=== PATIENT | male | born 1950 | race African-American/Black ===

== ENCOUNTER 2017-06-09 19:11 | Inpatient (IN) | payer MEDICARE ==
[~2017-06-09] VITALS: Ht 182.9 cm; Wt 91.6 kg
--- NOTE | 2017-06-09 19:40 | NUR ---
TO BED 8 A 66 YO MALE BIBRA W C/O "WEAK/CONFUSED SINCE MORNING." UPON ARRIVAL TO ER, PATIENT IS ALERT RESPONSIVE, ORIENTED X2, WITH PERIODS OF CONFUSION. VSS. NAD NOTED. BREATHING EVEN AND UNLABORED. NONDIAPHORETIC. ONGOING MONITORING. SAFETY AND COMFORT MEASURES RENDERED. AWAITING FOR ER MD KO.
--- NOTE | 2017-06-09 19:40 | NUR ---
started a saline lock on the right hand g20, blood drawn and sent to lab.
--- NOTE | 2017-06-09 19:41 | NUR ---
CXR AT BEDSIDE.
--- NOTE | 2017-06-09 19:50 | NUR ---
PATIENT TO CT.
[2017-06-09 20:22] LABS: BASOPHILS # (AUTO) 0.1 /CMM (0.0-0.2); BASOPHILS % (AUTO) 1.1 % (0.0-2.0); EOSINOPHILS # (AUTO) 0.2 /CMM (0.0-0.7); EOSINOPHILS % (AUTO) 1.4 % (0.0-6.0); HEMATOCRIT 41 % (39-51); HEMOGLOBIN 14.1 g/dL (13.5-17.5); LYMPHOCYTES # (AUTO) 2.4 /CMM (0.8-4.8); LYMPHOCYTES % (AUTO) 20.4 % (20.0-44.0); MEAN CORPUSCULAR HEMOGLOBIN 31 PG (26.0-33.0); MEAN CORPUSCULAR HGB CONC 34 g/dl (31.0-36.0); MEAN CORPUSCULAR VOLUME 90 fL (80-96); MONOCYTES # (AUTO) 1.2 /CMM (0.1-1.30); MONOCYTES % (AUTO) 10.1 % (2.0-12.0); PLATELET COUNT (AUTO) 269 /CMM (150-450); RDW COEFFICIENT OF VARIATION 12.2 (11.5-15.0); RED BLOOD CELL COUNT(AUTO) 4.56 MIL/uL (4.5-6.0); WHITE BLOOD COUNT (AUTO) 11.9 K/uL (4.3-11.0)
[2017-06-09 20:32] LABS: CALCIUM, SERUM 9.1 mg/dL (8.5-10.1); CARBON DIOXIDE 22 mmol/L (21-32); CHLORIDE 102 mmol/L (98-107); CREATININE 1.3 mg/dL (0.6-1.3); GLUCOSE 210 mg/dL (74-106); POTASSIUM 4.1 mmol/L (3.5-5.1); SODIUM SERUM 133 mmol/L (136-145); UREA NITROGEN, BLOOD 25 mg/dL (7-18)
[2017-06-09 20:36] LABS: INR 0.98 (0.87-1.13); PROTHROMBIN TIME 10.2 SECS (9.5-12.7)
[2017-06-09 20:38] LABS: ALANINE AMINOTRANSFERASE 26 U/L (12-78); ALBUMIN 3.5 g/dL (3.4-5.0); ALCOHOL, BLOOD < 3 mg/dL (0-0); ALKALINE PHOSPHATASE 84 U/L (46-116); ASPARTATE AMINOTRANSFERASE 17 U/L (15-37); BILIRUBIN,DIRECT 0.1 mg/dL (0.0-0.2); BILIRUBIN,TOTAL 0.5 mg/dL (0.2-1.0); TOTAL PROTEIN, SERUM 7.2 g/dL (6.4-8.2)
[2017-06-09 20:39] LABS: ACETAMINOPHEN < 2 ug/ml (10-30); SALICYLATE 0.8 mg/dL (2.8-20.0)
[2017-06-09 20:40] LABS: TROPONIN I < 0.017 ng/mL (0.00-0.056)
[2017-06-09] MEDS ORDERED: ASPI81TA2 PO (21:11)
[2017-06-09] MEDS ORDERED: MEMA10TA PO (21:11)
[2017-06-09] MEDS ORDERED: LISI2.5T2 PO (21:11)
[2017-06-09] MEDS ORDERED: RISP0.5T2 PO (21:11)
[2017-06-09] MEDS ORDERED: METO-302 PO (21:11)
[2017-06-09] MEDS ORDERED: INSU3INS6 SUBCUT (21:11)
[2017-06-09] MEDS ORDERED: HUMALOG (21:11)
[2017-06-09] MEDS ORDERED: DIVA500T2 PO (21:11)
[2017-06-09] MEDS ORDERED: ATOR20TA PO (21:11)
--- NOTE | 2017-06-09 21:47 | NUR ---
CALLED FOR TELE BED
--- NOTE | 2017-06-09 21:55 | NUR ---
Lidocaine uroject administered prior to straight catheter per Dr Schreiber's verbal order.
--- NOTE | 2017-06-09 21:57 | NUR ---
PERFORMED STRAIGHT CATHETER ON PATIENT ASEPTICALLY PER DR WILLS VERBAL ORDER, DRAINED ABOUT 80CC OF ORANGE COLORED URINE. COLLECTED AND SENT TO LAB.
--- NOTE | 2017-06-09 22:14 | NUR ---
Patient was from [facility], the medical administrator's contact number is [phone]. Call if there is any question.
[2017-06-09 22:20] LABS: APPEARANCE,URINE SL CLOUDY (CLEAR); BILIRUBIN,URINE NEGATIVE (NEGATIVE); BLOOD, URINE NEGATIVE Ery/uL (NEGATIVE); COLOR,URINE YELLOW (YELLOW); KETONES,URINE NEGATIVE (NEGATIVE); LEUKOCYTE ESTERASE ,URINE TRACE (NEGATIVE); NITRITE, URINE NEGATIVE (NEGATIVE); PROTEIN,URINE TRACE mg/dl (NEGATIVE); UGLUCOSE 2+ mg/dL (NEGATIVE)
[2017-06-09 22:24] LABS: RBC,URINE 0-2 /HPF (0-2)
[2017-06-09 22:25] LABS: BACTERIA,URINE Few /HPF (None Seen); SQUAMOUS EPITHELIAL CELL,UR Rare /HPF (None Seen); WBC,URINE 25-30 /HPF (0-3)
--- NOTE | 2017-06-09 22:43 | NUR ---
TELE 320-2
--- NOTE | 2017-06-09 23:13 | NUR ---
REPORT GIVENT TO MIKE MARTIN FOR TELE ADMISSION AND MARLEEN. PATIENT IS GOING TO ROOM 328-2.
[2017-06-10] VITALS: BP 128/75
--- NOTE | 2017-06-10 00:30 | NUR ---
PRODUCTION TESTER NOTE: RECEIVED PATIENT FROM ER, NO ACUTE DISTRESS NOTED. BREATHING EVEN AND UNLABORED, NO SOB NOTED. TELE READING SR 73. IV TO RIGHT HAND #20G IN PLACE. ORIENTED PATIENT TO ROOM AND USE OF CALL LIGHT. BED LOCKED AND IN LOWEST POSITION, CALL LIGHT IN REACH. WILL CONTINUE TO MONITOR.
--- NOTE | 2017-06-10 01:15 | NUR ---
MANUAL TRAINING TEACHER NOTE: PATIENT LACTIC ACID 2.4. PATIENT HAD BLOOD CULTURES DONE IN ER, AND ROCEPHIN 1 GRAM GIVEN IN ER. PATIENT STARTED ON IV FLUIDS OF D5 1/2NS AT 75 ML/HR. INFORMED EATING DISORDER PSYCHOLOGIST MD, DR. SHANKAR, SHE WILL LOOK INTO PATIENT CHART. WILL CONTINUE TO MONITOR.
[2017-06-10 04:00] VITALS: BP 104/65
--- NOTE | 2017-06-10 05:30 | NUR ---
DIVERSIFIED CROPS SUPERVISOR NOTE: RAINEY CATHETER #16FR INSERTED PER MD ORDER, WITH MINIMAL BLEEDING AND CLEAR YELLOW URINE OUTPUT. PATIENT TOLERATED TREATMENT WITHOUT COMPLAINS. WILL CONTINUE TO MONITOR.
--- NOTE | 2017-06-10 06:10 | NUR ---
PUSH BENCH OPERATOR HELPER NOTE: PATIENT RESTING IN BED, NO ACUTE DISTRESS NOTED. BREATHING EVEN AND UNLABORED, NO SOB NOTED. TELE READING SR 70. IV TO RIGHT HAND #20G IN PLACE, INFUSING D5 1/2 NS AT 75 ML/HR. RAINEY CATHETER IN PLACE, DRAINING CLEAR YELLOW URINE WITH MIN BLEEDING. BED LOCKED AND IN LOWEST POSITION, CALL LIGHT IN REACH. WILL ENDORSE TO DAY NURSE TO CONTINUE WITH PLAN OF CARE.
[2017-06-10 06:40] LABS: BASOPHILS % (AUTO) 0.2 % (0.0-2.0); EOSINOPHILS # (AUTO) 0.1 /CMM (0.0-0.7); EOSINOPHILS % (AUTO) 1.8 % (0.0-6.0); HEMATOCRIT 38 % (39-51); HEMOGLOBIN 12.9 g/dL (13.5-17.5); LYMPHOCYTES # (AUTO) 1.9 /CMM (0.8-4.8); LYMPHOCYTES % (AUTO) 24.4 % (20.0-44.0); MEAN CORPUSCULAR HEMOGLOBIN 31 PG (26.0-33.0); MEAN CORPUSCULAR HGB CONC 34 g/dl (31.0-36.0); MEAN CORPUSCULAR VOLUME 92 fL (80-96); MONOCYTES # (AUTO) 0.7 /CMM (0.1-1.30); MONOCYTES % (AUTO) 8.8 % (2.0-12.0); NEUTROPHILS % (AUTO) 64.8 % (43.0-81.0); PLATELET COUNT (AUTO) 221 /CMM (150-450); RDW COEFFICIENT OF VARIATION 13.1 (11.5-15.0); RED BLOOD CELL COUNT(AUTO) 4.18 MIL/uL (4.5-6.0); WHITE BLOOD COUNT (AUTO) 7.7 K/uL (4.3-11.0)
[2017-06-10 06:42] LABS: ALBUMIN 3.2 g/dL (3.4-5.0); BILIRUBIN,TOTAL 0.4 mg/dL (0.2-1.0); CREATININE 1.3 mg/dL (0.6-1.3); PHOSPHORUS 3.1 mg/dL (2.5-4.9); POTASSIUM 4.8 mmol/L (3.5-5.1); PROTHROMBIN TIME 10.7 SECS (9.5-12.7); TOTAL PROTEIN, SERUM 6.6 g/dL (6.4-8.2)
[2017-06-10 06:49] LABS: THYROID STIMULATING HORMONE 2.026 uIU/mL (0.358-3.74)
--- NOTE | 2017-06-10 07:30 | NUR ---
pediatrician/medical doctor Initial Notes: Patient resting in bed. Patient alert oriented x1 with periods of confusion. Non-labored breathing noted. Patient on room air. Patient on Telemetry monitoring with sinus rhythm noted. Patient denies pain. IV site patent and intact. Bed in lowest locked position. Call light within reach. Patient educated on the usage of call light. WIll continue to monitor.
[2017-06-10 08:00] VITALS: BP 123/79
[2017-06-10] MEDS ORDERED: BLOO-668 IN (08:24)
[2017-06-10] MEDS ORDERED: ATOR10TA PO (08:24)
[2017-06-10] MEDS ORDERED: RISP0.2515 PO (08:24)
[2017-06-10] MEDS ORDERED: INSU100V27 SQ (08:24)
--- NOTE | 2017-06-10 10:03 | NUR ---
RN Notes: Dr. Ju Dimas aware of blood in urine. No new orders. Patient's vitals within normal range. Patient denies pain
[2017-06-10 16:00] VITALS: BP 137/81
--- NOTE | 2017-06-10 16:10 | NUR ---
RN Notes: Spoke with Dr. Dimas regarding blood in urine. ordered a CBC stat.
--- NOTE | 2017-06-10 17:12 | NUR ---
RN Notes: Lab notified me of Gram positive cocci in cluster in the patient's blood. Alerted Dr. Dimas. Awaiting orders
--- NOTE | 2017-06-10 19:20 | NUR ---
coating mixer supervisor Closing Notes: Patient resting in bed. Patient alert oriented x1 with periods of confusion. Non-labored breathing noted. Patient on room air. Patient on Telemetry monitoring with sinus rhythm noted. Patient denies pain. IV site patent and intact. Bed in lowest locked position. Call light within reach. Patient educated on the usage of call light. Endorsed to next shift .
[2017-06-10 19:29] LABS: HEMATOCRIT 39 % (39-51); HEMOGLOBIN 13.1 g/dL (13.5-17.5); LYMPHOCYTES % (AUTO) 21.4 % (20.0-44.0); MEAN CORPUSCULAR HEMOGLOBIN 31 PG (26.0-33.0); MEAN CORPUSCULAR HGB CONC 34 g/dl (31.0-36.0); MEAN CORPUSCULAR VOLUME 92 fL (80-96); NEUTROPHILS % (AUTO) 66.5 % (43.0-81.0); PLATELET COUNT (AUTO) 243 /CMM (150-450); RDW COEFFICIENT OF VARIATION 13.2 (11.5-15.0); RED BLOOD CELL COUNT(AUTO) 4.24 MIL/uL (4.5-6.0); WHITE BLOOD COUNT (AUTO) 10.3 K/uL (4.3-11.0)
[2017-06-10 19:30] LABS: BASOPHILS % (AUTO) 0.4 % (0.0-2.0); EOSINOPHILS # (AUTO) 0.3 /CMM (0.0-0.7); EOSINOPHILS % (AUTO) 2.6 % (0.0-6.0); LYMPHOCYTES # (AUTO) 2.2 /CMM (0.8-4.8); MONOCYTES # (AUTO) 0.9 /CMM (0.1-1.30); MONOCYTES % (AUTO) 9.1 % (2.0-12.0); NEUTROPHILS # (AUTO) 6.9 /CMM (1.8-8.9)
--- NOTE | 2017-06-10 19:45 | NUR ---
RN OPENING NOTES RECEIVED REPORT FROM CURTIS RAYMUNDO RN. FOUND Pt AWAKE, RESTING IN BED. Pt IS A/OX1, CONFUSED, BUT IS VERBAL, AND ABLE TO MAKE NEEDS KNOWN. NO S/S OF ACUTE DISTRESS OR SOB NOTED. NO C/O PAIN AT THIS TIME. ON TELE, WITH TELE READING SR 68. RAINEY CATHETER IN PLACE, DRAINING WELL. URINE COLOR IS RED, MD AWARE. ON SOFT DIET, BUT ABLE TO SWALLOW PILLS FINE. IV ACCESS ON RHAND #20G, IVF D5 1/2NS @75ML/HR, INFUSING WELL. SAFETY MEASURES IN PLACE. BED LOW, LOCKED, HOB ELEVATED, SIDE RAILS UP, CALL LIGHT WITHIN REACH. WILL CONTINUE TO MONITOR Pt THROUGHOUT THE NIGHT FOR SAFETY.
[2017-06-10 20:00] VITALS: BP 144/84
--- NOTE | 2017-06-10 20:18 | NUR ---
Patient has a history of Down syndrome and mental retardation , reportedly had difficulty ambulating secondary to weakness in his bilateral lower extremities.He resides at the [facility] B& [phone]. Patient requires assistance with adl's, has adequate DME at the board and care. Current dc plan [facility] to return [facility]& [phone] Addendum: 06/10/17 at 2221 by MEGAN JAIME RN Amended: Links added.
[2017-06-11] VITALS (9 sets, daily range): BP systolic 129–157; BP diastolic 71–88
--- NOTE | 2017-06-11 | NUR ---
RN NOTES HS ACCUCHECK 342. ADMINISTERED 8UN OF INSULIN PER SLIDING SCALE. WILL CONTINUE TO MONITOR Pt's BG LEVELS.
--- NOTE | 2017-06-11 06:24 | NUR ---
pt refused bloodsugar accucheck in the am. asked pt if I could return in 30min to check it and pt still refused. said he wanted to be left alone to sleep.
--- NOTE | 2017-06-11 06:53 | NUR ---
RN CLOSING NOTES NO SIGNIFICANT CHANGES IN Pt's CONDITION. NO S/S OF ACUTE DISTRESS OR SOB NOTED DURING THE NIGHT. ALL NEEDS MET AND ATTENDED TO. SAFETY MEASURES IN PLACE. TELE READING SR 63. WILL ENDORSE TO DAYSHIFT RN FOR Pt's MARLEEN.
--- NOTE | 2017-06-11 07:30 | NUR ---
- patient on bed ,with cabrera cath, draining slightly dark jodi urine., awake , with IV infusing. Asked to go to bathroom & assisted with 2 helps per request., but only a very small amount of formed brownish stool.
--- NOTE | 2017-06-11 11:41 | NUR ---
- Visited by Ju Dimas NP & received orders to remove cabrera cath now w/c was draining clear jodi urine. Removed cabrera cath with no problems , & explained patient to try urine in the next 3-4 hours with more drinking fluids.
--- NOTE | 2017-06-11 13:49 | NUR ---
- Patient was transported to CT scan of abdomen via gurney , fully awake, with IV site patent.
--- NOTE | 2017-06-11 14:02 | NUR ---
- Back from CT Scan via gurney, with IV SITE patent..
--- NOTE | 2017-06-11 16:05 | NUR ---
- After patient was able to move his bowels to soft brownish stools , rectal pain was less reduced , & patient was more cooperative, IV atb infusing.
--- NOTE | 2017-06-11 16:34 | NUR ---
- Patient refused accucheck & was getting agitated. Allowed space but monitored closely.
--- NOTE | 2017-06-11 18:11 | NUR ---
RN closing notes: - patient ate 100% of his dinner & felt much better after moving his bowels 2x, soft stools, rectal pain was not verbalized, but noted to have small amount of urination in the diaper, tho' patient denies bladder spasm .IV infusing well, afebrile, & tolerating meals.
[2017-06-12] VITALS (9 sets, daily range): BP systolic 126–149; BP diastolic 67–83
--- NOTE | 2017-06-12 07:02 | NUR ---
pt alert, oriented x1 ,is a short tempered, pt refused fingerstick last night,insist to ambulate to bathroom for bm.incontinent of bladder, diaper applied. denies any pain, slept well,sinus rhythm on monitor.
[2017-06-12 08:00] LABS: CALCIUM, SERUM 8.9 mg/dL (8.5-10.1); CREATININE 1.3 mg/dL (0.6-1.3); POTASSIUM 4.4 mmol/L (3.5-5.1)
--- NOTE | 2017-06-12 08:10 | NUR ---
RN NOTES RECEIVED PT. PT IS STABLE AND IN BED RESTING. NO S/S OF DISTRESS OR SOB. PT HAS C/O PAIN, WILL ADDRESS. PT APPEARS TO BE IN A PLEASANT MOOD AND COMPLIANT WITH ALL REQUESTS. TELE MONITOR ON PT READING NORMAL SINUS RHYTHM AT 66 BPM. IV ACCESS LOCATED ON LEFT AC AND RIGHT HAND. SAFETY MEASURES IN PLACE, CALL LIGHT WITHIN REACH. WILL CONTINUE TO MONITOR.
--- NOTE | 2017-06-12 19:29 | NUR ---
RN NOTES PT IS IN BED RESTING. A/OX2. NO S/S OF DISTRESS OR SOB. NO C/O PAIN AT THIS TIME. PT HAS COMPLAINED OF N/V ALL DAY. ZOFRAN GIVEN TWICE AND N/V MANAGED. BS REACHED 372 AT 1200, INSULIN COVERAGE GIVEN. SAFETY MEASURES IN PLACE. CALL LIGHT WITHIN REACH. WILL ENDORSE TO BREAKER ENGINEER FOR MARLEEN.
--- NOTE | 2017-06-12 19:30 | NUR ---
RN NOTES PT IS IN BED RESTING. A/OX2. NO S/S OF DISTRESS OR SOB. NO C/O PAIN AT THIS TIME. PT HAS NAUSEA. IV SITE INTACT, WITH FLUIDS RUNNING ORDERED. WILL ADMINISTER ZOFRAN ORDERED. SAFETY MEASURES IN PLACE. CALL LIGHT WITHIN REACH. BEE LOCKED AND IN LOWEST POSITION. .
--- NOTE | 2017-06-12 22:00 | NUR ---
RN NOTES BLOOD SUGAR 210. INSULIN GIVEN PER SLIDING SCALE.
[2017-06-13] VITALS: BP 137/78
[2017-06-13 04:00] VITALS: BP 131/72
[2017-06-13 06:00] VITALS: BP 116/71
[2017-06-13 06:38] LABS: BASOPHILS # (AUTO) 0.1 /CMM (0.0-0.2); BASOPHILS % (AUTO) 0.8 % (0.0-2.0); EOSINOPHILS # (AUTO) 0.4 /CMM (0.0-0.7); EOSINOPHILS % (AUTO) 4.1 % (0.0-6.0); HEMATOCRIT 37 % (39-51); HEMOGLOBIN 12.9 g/dL (13.5-17.5); LYMPHOCYTES % (AUTO) 32.9 % (20.0-44.0); MEAN CORPUSCULAR HEMOGLOBIN 32 PG (26.0-33.0); MEAN CORPUSCULAR HGB CONC 35 g/dl (31.0-36.0); MEAN CORPUSCULAR VOLUME 91 fL (80-96); MONOCYTES # (AUTO) 0.8 /CMM (0.1-1.30); MONOCYTES % (AUTO) 8.5 % (2.0-12.0); NEUTROPHILS # (AUTO) 4.9 /CMM (1.8-8.9); NEUTROPHILS % (AUTO) 53.7 % (43.0-81.0); PLATELET COUNT (AUTO) 243 /CMM (150-450); RDW COEFFICIENT OF VARIATION 13.3 (11.5-15.0); RED BLOOD CELL COUNT(AUTO) 4.07 MIL/uL (4.5-6.0); WHITE BLOOD COUNT (AUTO) 9.1 K/uL (4.3-11.0)
--- NOTE | 2017-06-13 06:46 | NUR ---
DIRECTOR OF ACCREDITATION NOTE TELE SB 58. PATIENT STABLE. ALL NEEDS MET AND ATTENDED TO. BLOOD SUGAR 185. 3 UNITS GIVE. WILL ENDORSE OT DAY SHIFT FOR MARLEEN.
[2017-06-13 07:06] LABS: CALCIUM, SERUM 8.9 mg/dL (8.5-10.1); CREATININE 1.4 mg/dL (0.6-1.3); POTASSIUM 4.2 mmol/L (3.5-5.1)
--- NOTE | 2017-06-13 07:42 | NUR ---
MS/RN OPENING NOTE PATIENT RECEIVED IN BED AWAKE IN STABLE CONDITION. ALERT AND ORIENTED TIMES 2. ABLE TO MAKE DECISIONS AND NEEDS KNOWN. NO SIGNS OF ACUTE DISTRESS. NO COMPLAIN OF PAIN OR DISCOMFORT. ALL NEEDS ATTENDED TO. CALL LIGHT WITHIN REACH. WILL CONTINUE TO MONITOR TO ENSURE SAFETY.
--- NOTE | 2017-06-13 12:37 | NUR ---
MS/RN SEEN BY MARVA PATIENT SEEN BY MARVA SHELL WITH ORDERS OF LEVEMIR 12 UNITS SQ QHS.
[2017-06-13 16:00] VITALS: BP 128/75
--- NOTE | 2017-06-13 18:25 | NUR ---
MS/RN CLOSING NOTE PATIENT IN BED AWAKE IN STABLE CONDITION. ALERT AND ORIENTED TIMES 2-3 WITH EPISODES OF FORGETFULNESS. NO SIGNS OF ACUTE DISTRESS. NO COMPLAIN OF PAIN OR DISCOMFORT. ALL NEEDS ATTENDED TO. CALL LIGHT WITHIN REACH. WILL ENDORSE TO NEXT SHIFT FOR CONTINUITY OF CARE.
--- NOTE | 2017-06-13 19:30 | NUR ---
RN NOTES PT IS IN BED RESTING. A/OX2. NO S/S OF DISTRESS OR SOB. NO C/O PAIN AT THIS TIME. IV SITE INTACT, WITH FLUIDS RUNNING ORDERED. SAFETY MEASURES IN PLACE. CALL LIGHT WITHIN REACH. BED LOCKED AND IN LOWEST POSITION. .
[2017-06-13 20:00] VITALS: BP 123/69
[2017-06-13 22:00] VITALS: BP 123/69
--- NOTE | 2017-06-13 22:00 | NUR ---
MS RN NOTE BLOOD SUGAR 346. 8 UNITS GIVEN.
[2017-06-14 06:35] LABS: BASOPHILS # (AUTO) 0.1 /CMM (0.0-0.2); BASOPHILS % (AUTO) 0.6 % (0.0-2.0); EOSINOPHILS # (AUTO) 0.3 /CMM (0.0-0.7); EOSINOPHILS % (AUTO) 3.2 % (0.0-6.0); HEMATOCRIT 37 % (39-51); HEMOGLOBIN 12.7 g/dL (13.5-17.5); LYMPHOCYTES # (AUTO) 2.2 /CMM (0.8-4.8); LYMPHOCYTES % (AUTO) 19.7 % (20.0-44.0); MEAN CORPUSCULAR HEMOGLOBIN 31 PG (26.0-33.0); MEAN CORPUSCULAR HGB CONC 34 g/dl (31.0-36.0); MEAN CORPUSCULAR VOLUME 92 fL (80-96); MONOCYTES # (AUTO) 0.9 /CMM (0.1-1.30); MONOCYTES % (AUTO) 7.8 % (2.0-12.0); NEUTROPHILS # (AUTO) 7.6 /CMM (1.8-8.9); NEUTROPHILS % (AUTO) 68.7 % (43.0-81.0); PLATELET COUNT (AUTO) 244 /CMM (150-450); RDW COEFFICIENT OF VARIATION 13.4 (11.5-15.0); RED BLOOD CELL COUNT(AUTO) 4.08 MIL/uL (4.5-6.0)
--- NOTE | 2017-06-14 06:49 | NUR ---
MS RN NOTE PATIENT STABLE. BLOOD SUGAR 256. INSULIN COVERAGE GIVEN BY SLIDING SCALE. ALL NEEDS MET AND ATTENDED TO. WILL ENDORSE TO DAY SHIFT FOR MARLEEN.
[2017-06-14 07:00] LABS: CALCIUM, SERUM 8.9 mg/dL (8.5-10.1); CREATININE 1.4 mg/dL (0.6-1.3)
--- NOTE | 2017-06-14 07:05 | NUR ---
RN MS NOTES PATIENT ALERT AND ORIENTED, BREATHING EVEN AND UNLABORED, NO DISTRESS NOTED, DENIES PAIN OR DISCOMFORT, PIV INFILTRATED, WILL TRY TO REINSERT, LEFT HAND NOTED SWELLING +1 FROM INFILTRATED IV, KEPT ELEVATED WITH PILLOW, NEEDS ATTENDED AND ANTICIPATED, CALL LIGHT WITHIN REACH, SAFETY MEASURES IN PLACED, WILL CONTINUE TO MONITOR.
[2017-06-14 07:06] LABS: POTASSIUM 4.3 mmol/L (3.5-5.1)
[2017-06-14 08:14] VITALS: BP 134/74
[2017-06-14 16:00] VITALS: BP 124/80
--- NOTE | 2017-06-14 19:09 | NUR ---
RN MS NOTES PATIENT ALERT AND ORIENTED, VERBALLY RESPONSIVE, DENIES PAIN AT THIS TIME, NO S/SX OF DISTRESS AT THIS TIME, LEFT HAND STILL SWELLING, ELEVATED WITH PILLOW, NEWLY INSERTED PIV ON R HAND PATENT AND FLUSHES WELL, INCONTINENT TO BOWEL, NO BM DURING THIS SHIFT, PATIENT AMBULATED WITH PHYSICAL THERAPY AND TOLERATED WELL, WAS SEEN BY MARVA SHELL PRACTICE BILLING ASSOCIATE TODAY WITH AN ORDER TO INCREASE LANTUS, ALL NEEDS ATTENDED AND MET, SAFETY MEASURES IN PLACED, CALL LIGHT WITHIN REACH, WILL ENDORSE TO VIBRATING SCREEN OPERATOR FOR MARLEEN.
--- NOTE | 2017-06-14 19:10 | NUR ---
RN OPEN NOTES RECEIVED PATIENT AWAKE IN BED. A/O X2-3. NO SIGNS OF DISTRESS OR DISCOMFORT. BREATHING EVEN AND UNLABORED IV ACCESS IN R HAND PATENT AND INTACT, NO SIGNS OF REDNESS OR INFILTRATION. DENIES ANY PAIN AT THIS TIME. BED IN LOW LOCKED POSITION WITH SIDE RAILS X2. CALL LIGHT WITHIN REACH. WILL CONTINUE TO MONITOR
[2017-06-14 20:00] VITALS: BP 142/85
--- NOTE | 2017-06-15 07:52 | NUR ---
RN CLOSING NOTES PATIENT RESTING IN BED, EASILY AROUSABLE TO NAME. A/O X2-3. NO SIGNS OF DISTRESS OR DISCOMFORT. BREATHING EVEN AND UNLABORED IV ACCESS IN R HAND PATENT AND INTACT, NO SIGNS OF REDNESS OR INFILTRATION. DENIES ANY PAIN AT THIS TIME. ALL NEEDS MET. NO SIGNIFICANT CHANGES THROUGH THE NIGHT. BED IN LOW LOCKED POSITION WITH SIDE RAILS X2. CALL LIGHT WITHIN REACH. ENDORSED TO AM SHIFT FOR MARLEEN
[2017-06-15 08:00] VITALS: BP 112/64
--- NOTE | 2017-06-15 08:00 | NUR ---
PATIENT IS ALERT AND ORIENTED X4. PT IS RESTING IN BED AND EASILY AROUSABLE. NO SIGNS OF DISTRESS OR DISCOMFORT. BREATHING EVEN AND UNLABORED. CALL LIGHT WITHIN REACH.
--- NOTE | 2017-06-15 09:10 | NUR ---
MS MARTIN BREAKFAST SERVED. MEDICATION GIVEN. TOLERATED WELL.
--- NOTE | 2017-06-15 11:40 | NUR ---
MS MARTIN PT WAS SEEN BY MARVA SHELL WITH ORDERS MADE AND CARRIED OUT.
[2017-06-15 16:00] VITALS: BP 115/83
--- NOTE | 2017-06-15 16:40 | NUR ---
MS RN WAS SEEN BY DR AU. NO ORDER AT THIS TIME.
--- NOTE | 2017-06-15 18:00 | NUR ---
MS RN MIDLINE INSERTED RIGHT UPPER ARM WITH GOOD VENOUS RETURN. ENDORSED PT TO RETAIL FURNITURE SALES.
--- NOTE | 2017-06-15 18:09 | NUR ---
MS RN PT IN BED. NO DISTRESS NOTED. WILL ENDORSE TO ENDOSCOPY REGISTERED NURSE FOR CONTINUATION OF CARE.
[2017-06-15 20:00] VITALS: BP 122/72
--- NOTE | 2017-06-15 20:00 | NUR ---
RN NOTES RECEIVED PT AWAKE ON BED, /OX3, CONFUSED AT TIMES, MIDLINE IN PLACE, DENIES PAIN NO SOB, CALL LIGHT WITHIN REACH, SIDERAILS UPX2 CONTINUE TO MONITOR
--- NOTE | 2017-06-16 07:05 | NUR ---
RN NOTES EVENING CARE RENDERED
--- NOTE | 2017-06-16 07:08 | NUR ---
RN NOTES AWAKE , MIDLINE IN PLACE, MORNING CARE RENDERED, CALL LIGHT WITHIN REACH, SIDERAILS UPX2, PT NEEDS ATTENDED
[2017-06-16 07:24] LABS: CALCIUM, SERUM 8.8 mg/dL (8.5-10.1); CREATININE 1.3 mg/dL (0.6-1.3); POTASSIUM 4.3 mmol/L (3.5-5.1)
[2017-06-16 08:00] VITALS: BP 108/66
--- NOTE | 2017-06-16 08:00 | NUR ---
MS RN OPENING NOTE PATIENT IS ALERT AND ORIENTED x3. PERIODS OF CONFUSION, EASILY REORIENTED. NO PAIN AT THIS TIME. NO SOB OR DISTRESS NOTED. CALL LIGHT WITHIN REACH. SAFETY MEASURES IMPLEMENTED. ABLE TO COMMUNICATE NEEDS. MIDLINE INTACT AND PATENT NO REDNESS OR SWELLING NOTED. BLOOD SUGAR TO BE MONITORED THROUGHOUT SHIFT. WILL CONTINUE TO MONITOR THROUGHOUT SHIFT
--- NOTE | 2017-06-16 09:47 | NUR ---
MS RN NOTE PATIENT PULLED OUT IV ON RIGHT HAND. REMOVED, SKIN INTACT.
[2017-06-16 16:00] VITALS: BP 134/69
--- NOTE | 2017-06-16 17:36 | NUR ---
MS TRANSPORTATION MANAGER NOTES PATIENT IS ALERT AND ORIENTED x3. PERIODS OF CONFUSION, CAN DIRECT BACK TO TIME. NO PAIN AT THIS TIME. NO SOB OR DISTRESS NOTED. ALL DUE MEDICATIONS GIVEN ORDERED. PATIENT GOING HOME WITH MIDLINE, INTACT AND PATENT KEPT CLEAN AND DRY. ALL INSTRUCTIONS GIVEN TO PATIENT AND GABRIEL AT [facility] [place]. PATIENT ABLE TO VERBALLY UNDERSTAND DISCHARGE INSTRUCTIONS. ALL BELONGINGS WITH PATIENT, LEFT VIA AMBULANCE WITH TWO TRANSFER MAN.
== END 2017-06-16 17:30 | disposition home or self-care (01) | DRG 871 ==
LOC: ER 19:14 → TELE 23:04 → MED 06-13 08:30 → MEDSG2 06-15 12:00
PROVIDERS: ADMIT Internal Medicine; ATTEND Internal Medicine
PROC: 05H533Z Insertion of Infusion Device into Right Subclavian Vein, Percutaneous Approach (ICD-10-PCS; principal; 2017-06-15)
PROC: B546ZZA Ultrasonography of Right Subclavian Vein, Guidance (ICD-10-PCS; 2017-06-15)
DX: A41.01 Sepsis due to Methicillin susceptible Staphylococcus aureus (principal); G92 Toxic encephalopathy; E87.2 Acidosis; G91.0 Communicating hydrocephalus; N39.0 Urinary tract infection, site not specified; G30.9 Alzheimer's disease, unspecified; F02.80 Dementia in other diseases classified elsewhere, unspecified severity, without behavioral disturbance, psychotic disturbance, mood disturbance, and anxiety; B95.61 Methicillin susceptible Staphylococcus aureus infection as the cause of diseases classified elsewhere; Q90.9 Down syndrome, unspecified; F79 Unspecified intellectual disabilities; Z79.899 Other long term (current) drug therapy; Z79.82 Long term (current) use of aspirin; I25.10 Atherosclerotic heart disease of native coronary artery without angina pectoris; I10 Essential (primary) hypertension; F09 Unspecified mental disorder due to known physiological condition; E78.5 Hyperlipidemia, unspecified; E11.65 Type 2 diabetes mellitus with hyperglycemia; F31.9 Bipolar disorder, unspecified; Z79.4 Long term (current) use of insulin; Z51.5 Encounter for palliative care; R65.20 Severe sepsis without septic shock
CPT/HCPCS: 36415; 70450-TC; 71010-TC; 71250-TC; 80048-TC; 80053-TC; 80061-TC; 80076-TC; 80202-TC; 80305; 81000-TC; 82140-TC; 82553-TC; 82746; 82962-TC; 83540-TC; 83605-TC; 83735-TC; 84100-TC; 84443-TC; 84484-TC; 85025-TC; 85730-TC; 87040-TC; 87086-TC; 92611-TC; 93307-TC; 97110-TC; 97116-TC; 97530-TC; A4216; A4606; G0480; J0690; J0696; J1815; J2060; J2405; J3370; J3490; J7060; Z7610